=== PATIENT | female | born 1960 | race Caucasian/White ===

== ENCOUNTER 2024-02-24 08:04 | Day surgery (SDC) | payer MEDICARE ==
[~2024-02-24] VITALS: Ht 165.1 cm; Wt 76.1 kg
[~2024-02-24 08:04] MED LIST: CALC-190 PO; ECOT81TA5 PO; LISI20TA33 PO; MIDAZOLAM INJ 2MG/2ML VIAL As Ordered ONE; NAPR500T6 PO; OMEG10002 PO; PANT20TA6 PO; PHENYLEPHRINE 10% OPHTH SOL 5ML OD PRN; PRES1CHW PO; THERTAB52 PO; ZYRTTAB8 PO; fentaNYL 100 MCG/2 ML INJECTION As Ordered ONE
[2024-02-24] MEDS ORDERED: LIDOCAINE 1% SDV 5ML VIAL SC PRN (08:25)
[2024-02-24] MEDS: OFLOXACIN 0.3 % (OCUFLOX) OPTH SOL 5ML OD ONE (10:10)
[2024-02-24] MEDS: LIDOCAINE 3.5 % 1ML OPHTH TOPICAL GEL OU ONE (10:11)
[2024-02-24] MEDS: ATROPINE SULFATE 1% OPHTH SOLN 2ML BTL OD SCH (10:11)
[2024-02-24] MEDS: PHENYLEPHRINE 2.5% OPHTH SOL 2ML OD SCH (10:11)
[2024-02-24] MEDS: TROPICAMIDE 1% OPHTH SOLN 15ML OD SCH (10:11)
[2024-02-24] MEDS: CEFUROXIME 1MG/0.1ML INTRACAMERAL INJ As Ordered ONE (10:40)
[2024-02-24] MEDS: BSS IRRIG/VANCO(10MG)/TOBRA(5MG)/EPINEPH(1:1000-0.5CC)500ML BAG-ORONLY As Ordered ONE (10:40)
[2024-02-24] MEDS: LIDOCAINE 1% SDV 5ML VIAL As Ordered ONE (10:40)
[2024-02-24 10:45] VITALS: BP 149/97; TEMP 97.4; O2SAT 98
== END 2024-02-24 11:07 | disposition home or self-care (01) ==
LOC: M SDC 08:04
PROVIDERS: ATTEND Ophthalmology
DX: H25.11 Age-related nuclear cataract, right eye (principal); I10 Essential (primary) hypertension; K21.9 Gastro-esophageal reflux disease without esophagitis; Z79.899 Other long term (current) drug therapy; Z79.82 Long term (current) use of aspirin
CPT/HCPCS: 66984; 92015; J0697; J2250; J3010; V2788